=== PATIENT | female | born 1955 | race Two or more races ===

== ENCOUNTER 2020-01-10 20:43 | Inpatient (IN) | payer MEDICARE, OTHER ==
[~2020-01-10] VITALS: Ht 165.1 cm; Wt 51.7 kg
--- NOTE | 2020-01-10 21:00 | NUR ---
PT HIMA SANDOVAL FROM [facility] FOR ADMISSION TO GPS. PT TO BE EVALUATED.
--- NOTE | 2020-01-10 21:04 | NUR ---
GPS BED ASSIGNMENT 219-A
[2020-01-10 21:11] LABS: BASOPHILS % (AUTO) 0.7 % (0.0-2.0); EOSINOPHILS % (AUTO) 0.8 % (0.0-6.0); HEMATOCRIT 36 % (33-45); HEMOGLOBIN 12.3 g/dL (11.5-14.8); LYMPHOCYTES # (AUTO) 2.2 /CMM (0.8-4.8); LYMPHOCYTES % (AUTO) 34.6 % (20.0-44.0); MEAN CORPUSCULAR HGB CONC 34 g/dl (31.0-36.0); MEAN CORPUSCULAR VOLUME 93 fL (82-100); MONOCYTES # (AUTO) 0.6 /CMM (0.1-1.30); MONOCYTES % (AUTO) 8.6 % (2.0-12.0); NEUTROPHILS # (AUTO) 3.6 /CMM (1.8-8.9); NEUTROPHILS % (AUTO) 55.3 % (43.0-81.0); PLATELET COUNT (AUTO) 298 /CMM (150-450); WHITE BLOOD COUNT (AUTO) 6.4 K/uL (4.3-11.0)
--- NOTE | 2020-01-10 21:46 | NUR ---
CALLING REPORT TO GSP RN.
[2020-01-10 21:47] LABS: CALCIUM, SERUM 9.4 mg/dL (8.5-10.1); CARBON DIOXIDE 32 mmol/L (21-32); CHLORIDE 102 mmol/L (98-107); CREATININE 1.1 mg/dL (0.6-1.3); GLUCOSE 112 mg/dL (74-106); POTASSIUM 3.9 mmol/L (3.5-5.1); SODIUM SERUM 141 mmol/L (136-145); UREA NITROGEN, BLOOD 22 mg/dL (7-18)
[2020-01-10 21:59] LABS: ALANINE AMINOTRANSFERASE 14 U/L (12-78); ALBUMIN 3.6 g/dL (3.4-5.0); ALCOHOL, BLOOD < 3 mg/dL (0-0); ALKALINE PHOSPHATASE 79 U/L (46-116); ASPARTATE AMINOTRANSFERASE 16 U/L (15-37); BILIRUBIN,DIRECT 0.1 mg/dL (0.0-0.2); BILIRUBIN,TOTAL 0.2 mg/dL (0.2-1.0); TOTAL PROTEIN, SERUM 6.9 g/dL (6.4-8.2)
[2020-01-10 22:00] LABS: ACETAMINOPHEN < 2 ug/ml (10-30); SALICYLATE 1.5 mg/dL (2.8-20.0)
--- NOTE | 2020-01-10 22:16 | NUR ---
CALLED ART, RECORDS AND TAPE RECORDINGS ENGINEER FOR EVAL. LEFT MESSAGE, WILL FOLLOW UP
--- NOTE | 2020-01-10 22:18 | NUR ---
ART, OFFICE ASST EN ROUTE TO [facility] ER FOR EVAL
--- NOTE | 2020-01-10 22:30 | NUR ---
JULIET, ADRIEL, IS AT THE BEDSIDE.
--- NOTE | 2020-01-10 22:55 | NUR ---
URINE SAMPLE OBTAINED AND SENT TO LAB.
--- NOTE | 2020-01-10 23:01 | NUR ---
PT WAS EVALUATED AND IS NOT BEING PUT ON A HOLD. PT IS GOING VOLUNTARY TO [facility].
[2020-01-10] MEDS ORDERED: HYDROCODONE/APAP 5/325MG 1 EACH TABLET ONE (23:09)
[2020-01-10] MEDS ORDERED: MORPHINE SULFATE INJ 2 MG/ML DISP.SYRIN ONE (23:12)
[2020-01-10] MEDS ORDERED: MORPHINE SULFATE INJ 4 MG/ML DISP.SYRIN ONE (23:12)
[2020-01-10 23:13] LABS: APPEARANCE,URINE Clear (CLEAR); BILIRUBIN,URINE Negative (NEGATIVE); BLOOD, URINE Negative Ery/uL (NEGATIVE); COLOR,URINE Yellow (YELLOW); KETONES,URINE Trace (NEGATIVE); LEUKOCYTE ESTERASE ,URINE Negative (NEGATIVE); NITRITE, URINE Negative (NEGATIVE); PROTEIN,URINE Negative (NEGATIVE); UGLUCOSE Negative (NEGATIVE); UROBILINOGEN,URINE 0.2 EU/dL (0.2)
--- NOTE | 2020-01-10 23:18 | NUR ---
PT C/O SUPRAPUBIC ABD PAIN. DR LYN NOTIFIED. VERBAL ORDER FOR 6MG MORPHINE IM GIVEN.
[2020-01-10] MEDS ORDERED: NITR100C6 PO (23:21)
[2020-01-10] MEDS ORDERED: LEVO50TA8 PO (23:21)
[2020-01-10] MEDS ORDERED: FLUV100T3 PO (23:21)
[2020-01-10] MEDS ORDERED: TRAZ-182 PO (23:21)
[2020-01-10] MEDS ORDERED: GABA-532 PO (23:21)
[2020-01-10] MEDS ORDERED: CLON0.5T4 PO (23:21)
[2020-01-10] MEDS ORDERED: DESV25TA PO (23:21)
[2020-01-10 23:23] VITALS: BP 140/67
--- NOTE | 2020-01-10 23:23 | NUR ---
GPS diesel plant operator notes Admitted 64 YO female from ER. Pt admitted on voluntary status for psychosis, severe depression and anxiety and unable to perform many activities at home. Upon face to face assessment, Pt is alert and oriented X3, feeling depressed, flat effect, and cooperative with care. Pt denies HI/SI at this time. No acute distress noted. Skin body assessment is done and pictures is taken and placed in Pt's chart. Pt also have old heal SX scars at right knee and left arm. Pt rights handbook discussed to the patient. Pt belongings were inventoried and checked for contraband. Pt is under care psychiatric care of Dr. Saleem and under medical care of Dr. Elaine. Pt educated to the use of call andrade, bed alarm on, enviromental safety check done. Bed at low position and locked. Will continue to monitor Q 15 mins check for safety and behavior.
--- NOTE | 2020-01-10 23:29 | NUR ---
GPS RN NOTE SHEYLA FROM ER CALLED TO CONFIRM THAT PATIENT IS BEING ADMITTED VOLUNTARY ADMISSION & WAS NOT PUT ON HOLD IN ER. INFORMED TO CHARGE NURSE & PRIMARY RN.
[2020-01-10] MEDS ORDERED: MORPHINE SULFATE INJ 4 MG/ML DISP.SYRIN IM ONE (23:30)
[2020-01-10] MEDS ORDERED: HYDROCODONE/APAP 5/325MG 1 EACH TABLET PO ONE (23:30)
[2020-01-11] MEDS ORDERED: ACETAMINOPHEN 325 MG TABLET PO PRN
[2020-01-11] MEDS ORDERED: BLOOD SUGAR DIAGNOSTIC 1 EACH STRIP IN ONE
[2020-01-11] MEDS ORDERED: TEMAZEPAM 7.5 MG CAPSULE PO PRN
[2020-01-11] MEDS ORDERED: MAG HYDROX/AL HYDROX/SIMETH 30 ML UDC PO PRN
--- NOTE | 2020-01-11 00:28 | NUR ---
GPS RN notes Pt is complaining of heartburn and requesting meds. Administered maalox susp 30 ml/po as ordered for heartburn. Will continue to monitor.
[2020-01-11] MEDS ORDERED: GABAPENTIN 100 MG CAPSULE PO PRN (02:00)
[2020-01-11 05:08] LABS: BACTERIA,URINE Few /HPF (None Seen); CALCIUM OXALATE CRYSTALS,UR Many /HPF (None Seen); RBC,URINE 0-2 /HPF (0-2); SQUAMOUS EPITHELIAL CELL,UR Few /HPF (None Seen)
[2020-01-11 08:00] VITALS: BP 108/65
[2020-01-11] MEDS: MAGNESIUM HYDROXIDE 30 ML UDC PO PRN (08:11)
[2020-01-11] MEDS: LORAZEPAM 0.5 MG TABLET PO PRN ×2 (08:15→14:16)
[2020-01-11 08:16] LABS: CREATININE 0.8 mg/dL (0.6-1.3)
[2020-01-11] MEDS ORDERED: LEVOTHYROXINE SODIUM 50 MCG TABLET PO SCH (09:00)
--- NOTE | 2020-01-11 13:04 | NUR ---
FAMILY CONTACT: SW contacted pts sister Brittanie [phone] to confirm pt is able to return to her home [address] [place] [address] once stable for discharge. Sister stated that pt is currently living in her home temporarily until she finds a permanent place to live. Sister stated that in order for pt to return to her home, her and her need to be involved in pts treatment planning. SW informed her that pt has not given consent to speak to her or her regarding her treatment and informed her that pt has asked SW to not discuss her medications or her treatment with sister. SW stated that she will discuss this with pts MD and attempt to get consent. Sister agreed.
--- NOTE | 2020-01-11 14:02 | NUR ---
INITIAL DISCHARGE PLAN: Patient wishes to return to her sister Jacki's house [address] [place] [id number]. Per pts sister Jacki [phone] pt is able to return back to her home if pt agrees for her to be involved with her treatment while in the hospital. SW will help form a safe and proper discharge in collaboration with .
[2020-01-11 16:00] VITALS: BP 120/79
--- NOTE | 2020-01-11 16:02 | NUR ---
GROUP NOTE: SW encouraged pt to attend group on this present day discussing "unstable mood." S: "I feel really anxious still I can't stop thinking about where I will live and my sister is putting so much pressure on me. I think I need another Ativan to calm me down, look how my hands are shaking and I'm starting to mumble." O: Pt appeared with anxious mood and teary eyes. Pt maintained minimal eye contact and was fidgeting with her hands. A: Pt has gained minimal awareness of her current unstable mood pt states that her medication is not working and that as soon as it does she will feel better. Pt does not believe that she needs to attend groups to feel better. P: SW will continue assessing pts level of suicidality once daily. Today pt states she cannot help to think about it due to her OCD and level of anxiety.
[2020-01-11 19:39] VITALS: BP 118/71
[2020-01-11] MEDS: FLUVOXAMINE MALEATE 50 MG TABLET PO SCH (20:56)
[2020-01-11] MEDS: clonazePAM 0.5 MG TABLET PO PRN (20:56)
--- NOTE | 2020-01-11 20:56 | NUR ---
ink maker notes Klonopin po given as ordered for pt requested. educate for possible side effect. snacks also served. kept her warm and comfortable at all times. place call light at reach.
[2020-01-11] MEDS: risperiDONE 1 MG TABLET PO SCH (22:07)
[2020-01-11] MEDS: TRAZODONE 50 MG TABLET PO SCH (22:09)
--- NOTE | 2020-01-12 | NUR ---
strategy planning consultant notes pt sleeping comfortably in bed without any distress noted. kept her warm and comfortable at all times. place call light at reach.
[2020-01-12] MEDS: LEVOTHYROXINE SODIUM 50 MCG TABLET PO SCH (07:05)
[2020-01-12 08:00] VITALS: BP 101/54
[2020-01-12] MEDS: clonazePAM 0.5 MG TABLET PO PRN ×2 (08:05→18:02)
[2020-01-12] MEDS: FLUVOXAMINE MALEATE 50 MG TABLET PO SCH ×2 (09:02→22:02)
[2020-01-12] MEDS: VENLAFAXINE XR 150 MG CAP.SR.24H PO SCH (09:02)
--- NOTE | 2020-01-12 13:25 | NUR ---
FAMILY CONTACT: SW received a call from pts sister Brittanie [phone] requesting an update. SW informed her that pt has not given permission to speak to her regarding her treatment plan. Brittanie stated that if pt does not allow her to be part of her treatment plan then she cannot return to her house.
[2020-01-12] MEDS: LORAZEPAM 0.5 MG TABLET PO PRN (15:16)
--- NOTE | 2020-01-12 15:25 | NUR ---
Group note: Pt attended a group session on 01/12/20 at 2PM discussing suicidal ideation and urges. S: I have been feeling extremely depressed and have been having suicidal ideation because I feel alone and I feel like I am in an unfamiliar territory. I feel uncomfortable with where I am in my life and I have been feeling very negative because of the different experiences I have had recently. O: Pt was present during the group session and was cooperative. Pt appeared to be in a dysphoric mood and presented with an anxious affect. Pt was attentive and provided feedback to all of the other patients who attended. Pt was able to appropriately maintain eye contact and tone of voice throughout the assessment. Pt was observed to be trembling. A: Pt expressed that she cannot be alone and the SW challenged her to express why being along is uncomfortable for her. Pt stated that meant that had to listen to the thoughts that were in her head and that she was not able to distract herself. Pt expressed that she needs distractions so that she does not think about everything that is taking place in her life that cause her to feel anxious. P: Pt will continue milieu treatment and medication stabilization.
[2020-01-12 16:00] VITALS: BP 135/82
[2020-01-12] MEDS: MAGNESIUM HYDROXIDE 30 ML UDC PO PRN (18:02)
[2020-01-12 20:00] VITALS: BP 115/52
[2020-01-12] MEDS: TRAZODONE 50 MG TABLET PO SCH (22:03)
[2020-01-12] MEDS: risperiDONE 1 MG TABLET PO SCH (22:04)
[2020-01-13 08:00] VITALS: BP 107/66
[2020-01-13] MEDS: FLUVOXAMINE MALEATE 50 MG TABLET PO SCH ×2 (08:08→21:30)
[2020-01-13] MEDS: VENLAFAXINE XR 150 MG CAP.SR.24H PO SCH (08:08)
[2020-01-13] MEDS: LEVOTHYROXINE SODIUM 50 MCG TABLET PO SCH (08:09)
[2020-01-13] MEDS ORDERED: risperiDONE 0.25 MG TABLET PO SCH (09:00)
[2020-01-13] MEDS: clonazePAM 0.5 MG TABLET PO PRN (12:47)
--- NOTE | 2020-01-13 13:14 | NUR ---
INDIVIDUAL MEETING: SW met with pt on this present day to discuss her sister's involvement in her treatment. Pt states that she gives authorization for SW to speak to pts sister regarding her treatment.
--- NOTE | 2020-01-13 13:39 | NUR ---
FAMILY CONTACT: BRISEIDA contacted pts sister Brittanie [phone] to inform her pt has given SW consent to speak to her. Sister stated that pt can only return to her home if she is actively working on a plan to find a permanent place to live and can use her home as a transitional place but she states that she cannot return if she is not in agreement to finding a place and if she is refusing assistance with placement and is making no effort. She states that pt is extremely manipulative and acts like a 89 year old woman and says that she cannot get out of bed and cannot do anything for herself so that people can be by her side 23/06. Sister stated that pt continues to state that she cannot live alone and does not want to do anything to help herself with her mental illness. Sister states that pt stays in bed all day and does not eat and is making herself sick. She also mentioned that pt has a history of drug use and multiple suicide attempts and believes she has done this for attention. Sister mentioned that she cannot be pts director medical safety and if pt is not showing improvement then pt is not welcome back into her home. SW informed her that she will discuss pts discharge plan with pt individually and inform MD of pts current discharge plan.
[2020-01-13] MEDS: MAGNESIUM HYDROXIDE 30 ML UDC PO PRN (15:07)
--- NOTE | 2020-01-13 15:13 | NUR ---
GROUP NOTE: SW encouraged pt to attend group on this present day discussing "discharge planning." Pt refused stating she couldn't get up and was not feeling well. SW provided intervention and informed her that SW had a conversation with her sister and stated that her sister has mentioned that if pt does not have a plan for placement she will not be able to return to her home. SW stated that sister wants pt to have a plan in place before transitioning back to her home. Pt began crying stating that "I can't find a place to live there is nothing I can do no one will help me I just cant do this anymore. This is all her fault if she wouldn't of kicked me out of her house the first time then this would not be happening." SW provided pt with insight into her mental illness and explained that she cannot blame or expect her sister to continue caring for her as her sister has stated that she cannot continue helping her if she does not want to help herself. Pt stated that her medication was not working and SW explained that part of her treatment was to also attend groups and see her outside mental health provider so that she can begin feeling better. SW also encouraged self-regulation of mood and encouraged acceptance into her illness and engagement in recovery. BRISEIDA provided pt with referrals for placement and pt resisted stating "I rather go to a [facility]."
--- NOTE | 2020-01-13 15:24 | NUR ---
FAMILY CONTACT: SW contacted pts sister Brittanie [phone] to inform her SW had a conversation with pt regarding her placement. SW informed her that pt did not receive the information well. Sister stated that she is not surprised as every time she has attempted to have this conversation with pt she cries and uses that mechanism to avoid the conversation. Sister stated that if pt continues to resist placement then she will not allow for her to return to her house once stable for discharge. Sister stated she will be coming on this present day to have this conversation with pt once again and figure out what the best discharge plan for pt will be.
[2020-01-13 16:00] VITALS: BP 120/50
[2020-01-13 20:31] VITALS: BP 101/45
[2020-01-13] MEDS: TRAZODONE 50 MG TABLET PO SCH (21:30)
[2020-01-13] MEDS: risperiDONE 1 MG TABLET PO SCH (21:31)
[2020-01-14] MEDS: clonazePAM 0.5 MG TABLET PO PRN ×2 (07:09→20:36)
[2020-01-14 08:00] VITALS: BP 113/59
[2020-01-14] MEDS: VENLAFAXINE XR 150 MG CAP.SR.24H PO SCH (08:23)
[2020-01-14] MEDS: FLUVOXAMINE MALEATE 50 MG TABLET PO SCH ×2 (08:23→20:36)
[2020-01-14] MEDS: LEVOTHYROXINE SODIUM 50 MCG TABLET PO SCH (08:23)
[2020-01-14] MEDS: VENLAFAXINE XR 75 MG CAP.SR.24H PO SCH (12:38)
[2020-01-14] MEDS: LORAZEPAM 0.5 MG TABLET PO PRN (13:19)
[2020-01-14 16:00] VITALS: BP 114/78
[2020-01-14 20:00] VITALS: BP 104/59
[2020-01-14 20:10] VITALS: BP 104/59
[2020-01-14] MEDS: risperiDONE 1 MG TABLET PO SCH (21:15)
[2020-01-14] MEDS: TRAZODONE 50 MG TABLET PO SCH (21:16)
--- NOTE | 2020-01-14 22:00 | NUR ---
Depressed, cooperative, medication compliant, requested Klonopin, organized, freely expressing thoughts with room mate.Denies suicidal ideation, WILL CONTINUE TO MONITOR Q15 MIN WITH HELP OF STAFF TO MAINTAIN SAFETY
--- NOTE | 2020-01-15 06:07 | NUR ---
ASLEEP MOST OF THE SHIFT, GIVEN ALL PM MEDS AND KLONOPIN
[2020-01-15 08:00] VITALS: BP 102/70
[2020-01-15] MEDS: FLUVOXAMINE MALEATE 50 MG TABLET PO SCH ×2 (08:31→21:06)
[2020-01-15] MEDS: LEVOTHYROXINE SODIUM 50 MCG TABLET PO SCH (08:31)
[2020-01-15] MEDS: VENLAFAXINE XR 150 MG CAP.SR.24H PO SCH (08:31)
[2020-01-15] MEDS: VENLAFAXINE XR 75 MG CAP.SR.24H PO SCH (13:04)
[2020-01-15] MEDS: MAGNESIUM HYDROXIDE 30 ML UDC PO PRN (13:05)
--- NOTE | 2020-01-15 13:10 | NUR ---
given mom for constipation.
[2020-01-15 16:05] VITALS: BP 113/50
[2020-01-15] MEDS: clonazePAM 0.5 MG TABLET PO PRN (17:11)
--- NOTE | 2020-01-15 17:15 | NUR ---
GIVEN KLONOPIN FOR NERVOUSNESS.
--- NOTE | 2020-01-15 18:00 | NUR ---
seems depressed,but quiet.and not too verbal.
--- NOTE | 2020-01-15 19:30 | NUR ---
GPS RN NOTE, RECEIVED PATIENT AWAKE AND IN BED, NO S/S OR COMPLAINTS OF PAIN AT THIS TIME. PATIENT IS DISPLAYING NO S/S OF APPARENT DISTRESS AT THIS TIME. PATIENT BREATHING IS UNLABORED WITH EQUAL RISE AND FALL OF THE CHEST. PATIENT IS ALERT AND ORIENTED X 2-3 ON ROOM AIR WITH A SPO2 97%. PATIENT IS COMPLIANT WITH MEDICATIONS, DEPRESSED, ANXIOUS AT TIMES, AND COOPERATIVE. PATIENT DENIES SUICIDAL AND HOMICIDAL IDEATIONS AT THIS TIME. PATIENT ASSISTED WITH TURNING AND REPOSITIONING Q2HR AND PRN FOR COMFORT AND CIRCULATION. PATIENT HAS NO NEEDS AT THIS TIME. PATIENT EDUCATED ON THE USE OF THE CALL IGLESIAS. PATIENT BED SIDE RAILS UP X 2 FOR SAFETY. PATIENT BED IS LOCKED, LOW, WITH BED ALARM ON. WILL CONTINUE TO MONITOR THIS PATIENT Q15 MINUTES WITH THE HELP OF STAFF TO MAINTAIN SAFETY.
[2020-01-15 20:08] VITALS: BP 126/83
[2020-01-15] MEDS: TRAZODONE 50 MG TABLET PO SCH (21:06)
[2020-01-15] MEDS: risperiDONE 1 MG TABLET PO SCH (21:06)
[2020-01-16 08:00] VITALS: BP 112/59
[2020-01-16] MEDS: LEVOTHYROXINE SODIUM 50 MCG TABLET PO SCH (08:13)
[2020-01-16] MEDS: VENLAFAXINE XR 150 MG CAP.SR.24H PO SCH (08:13)
[2020-01-16] MEDS: FLUVOXAMINE MALEATE 50 MG TABLET PO SCH ×2 (08:14→20:35)
[2020-01-16] MEDS: VENLAFAXINE XR 75 MG CAP.SR.24H PO SCH (12:09)
[2020-01-16] MEDS: clonazePAM 0.5 MG TABLET PO PRN ×2 (12:12→20:35)
--- NOTE | 2020-01-16 12:14 | NUR ---
GPS RN NOTE: PATIENT FEELING ANXIOUS REQUESTING MEDICATIONS KLONOPIN 0.5 MG PO PRN GIVEN PER ORDER WILL CONTINUE MONITORING
[2020-01-16 16:00] VITALS: BP 121/59
[2020-01-16 20:15] VITALS: BP 127/62
[2020-01-16] MEDS: TRAZODONE 50 MG TABLET PO SCH (21:51)
[2020-01-16] MEDS ORDERED: risperiDONE 1 MG TABLET PO SCH (22:00)
--- NOTE | 2020-01-17 05:38 | NUR ---
GPS RN NOTE: PT REFUSED SKIN CHECK. PER PT AM SHIFT ALREADY DID SKIN CHECK ON HER. PT A/O X3, CALM AND COOPERATIVE. WILL CONTINUE TO MONITOR AND ENDORSE TO AM NURSE.
[2020-01-17] MEDS: LEVOTHYROXINE SODIUM 50 MCG TABLET PO SCH (07:51)
[2020-01-17 08:00] VITALS: BP 97/69
[2020-01-17] MEDS: clonazePAM 0.5 MG TABLET PO PRN (08:54)
[2020-01-17] MEDS: VENLAFAXINE XR 150 MG CAP.SR.24H PO SCH (08:54)
[2020-01-17] MEDS: FLUVOXAMINE MALEATE 50 MG TABLET PO SCH (08:54)
--- NOTE | 2020-01-17 09:54 | NUR ---
DISCHARGE NOTE: Pt will be discharged at 12:00pm via private vehicle to her sister Jacki's house [address] [place] [address]. Sister Jacki [phone] will be picking pt up and transporting home. Pts mood is anxious with congruent affect. Pt denied suicidal/homicidal ideation and denied visual/auditory hallucinations. Pt will be under the care of Psychiatrist: [facility]. Fof[facility] [address] [place] [address] P: [phone] and has a follow up appointment to address her substance use and medication management on Tuesday January 21, 2020 at 2:00pm. SW faxed clinicals to pts mental health nurse Maliha Brunner RN. Pt was also given a referral to [facility] Address: [address] [place] [address] . The multidisciplinary exitcare form was done, printed, signed, and given to the patient.
--- NOTE | 2020-01-17 10:15 | NUR ---
GPS NURSING NOTE RECEIVED PATIENT IN THE ROOM AWAKE AMBULATORY STEADY GAIT. ANXIOUS, WRINGING HER HANDS, PLAN FOR D/C TODAY. ALERT/ORIENTED X3,DENIES SI/HI COMPLIANT WITH AM MEDICATIONS COOPERATIVE, CALM, SAFETY CHECKS DONE. FALL PRECAUTIONS CONTINUED. BED ALARM ON. BED IN LOW LOCKED POSITION. WILL CONTINUE TO MONITOR Q15 FOR SAFETY AND BEHAVIOR
--- NOTE | 2020-01-17 11:53 | NUR ---
MARBLE INSTALLER NOTE PATIENT IS A 64 FEMALE DISCHARGED TO HOME. PATIENT IS IN STABLE CONDITION. VSS. NO ACUTE DISTRESS NOTED. NO COMPLAINTS. COMPLIANT WITH MEDICATION MANAGEMENT. COOPERATIVE WITH PLAN OF CARE. PSYCHIATRIC TREATMENT PLANS MET. MEDICAL TREATMENT PLANS DEFERRED FOR CONTINUAL MONITORING. DENIES SI/HI VAH AT THE TIME OF DISCHARGE. PATIENT REFUSED SKIN CHECK UPON DISCHARGE. EDUCATED PATIENT ABOUT AFTERCARE WITH COPY PROVIDED. RETURNED PERSONAL BELONGINGS TO PATIENT. MEDICATIONS RECONCILED WITH ALONG WITH PSYCHIATRIC DISCHARGE ORDERS WITH DR OWENS AND PLACIDO SKAGGS PIT CLERK. DISCHARGE PAPERWORK SIGNED. FOR FOLLOW UP WITH PSYCHIATRIST AND PHYSICAL THERAPY RESIDENT WITHIN 1 WEEK. PATIENT LEFT THE [facility] GPS VIA PRIVATE CAR ACCOMPANIED BY SISTER, ROSELINE.
== END 2020-01-17 11:50 | disposition home or self-care (01) | DRG 885 ==
LOC: ER 20:44 → GPS 23:07
PROVIDERS: ADMIT Psychiatry & Neurology Psychosomatic Medicine; ATTEND Nurse Practitioner Acute Care
DX: F33.2 Major depressive disorder, recurrent severe without psychotic features (principal); F41.9 Anxiety disorder, unspecified; E03.9 Hypothyroidism, unspecified; F90.9 Attention-deficit hyperactivity disorder, unspecified type; K58.9 Irritable bowel syndrome, unspecified; Z90.710 Acquired absence of both cervix and uterus; Z91.5 Personal history of self-harm; Z90.49 Acquired absence of other specified parts of digestive tract; F42.9 Obsessive-compulsive disorder, unspecified; F19.90 Other psychoactive substance use, unspecified, uncomplicated
CPT/HCPCS: 36415; 80048-TC; 80061-TC; 80076-TC; 80305; 81000-TC; 82565-TC; 82962-TC; 85025-TC; 87081-TC; 87086-TC; 97116-TC; 97530-TC; G0480; J2270

== ENCOUNTER 2020-04-07 22:43 | Inpatient (IN) | payer MEDICARE, OTHER ==
[~2020-04-07] VITALS: Ht 167.6 cm; Wt 49.0 kg
[~2020-04-07 22:43] MED LIST: GABA-532 PO; LEVO50TA8 PO; NITR100C6 PO
[2020-04-08 00:15] VITALS: BP 130/64
--- NOTE | 2020-04-08 00:15 | NUR ---
GPS ADMISSION NOTE, RECEIVED PATIENT FROM [facility]. PATIENT ARRIVED ON THIS UNIT AT 0015 VIA STRETCHER WITH 2 EMT ESCORTS. PATIENT ADMITTED VOLUNTARY. PATIENT IS ALERT AND ORIENTED X 4 REPORTED HAVING SUICIDAL IDEATION DUE TO HER NOT HAVING ACCESS TO HER PSYCH MEDICATIONS. PATIENT CALLED 911 REPORTING ANXIETY AND PANIC ATTACK AND FEELING SUICIDAL. UPON FACE TO FACE ASSESSMENT PATIENT IS NOTED TO BEING CALM, COOPERATIVE, DISHEVELED, DEMANDING, AND NEEDS REDIRECTION. PATIENT IS CURRENTLY SITTING IN CHAIR AWAKE, HAS A COMPLAINT OF 10 OUT 10 PAIN IN NECK AND LOWER BACK. PATIENT IS TAKING IM PAIN MEDICATION FOR THIS PAIN. PATIENT IS DISPLAYING NO S/S OF APPARENT DISTRESS. PATIENT BREATHING IS UNLABORED WITH EQUAL RISE AND FALL OF THE CHEST. PATIENT IS ALERT AND ORIENTATED X 4 ON ROOM AIR. PATIENT ASSISTED WITH TURING AND REPOSITIONING Q2HR AND PRN FOR COMFORT AND CIRCULATION. PATIENT HAS NO NEEDS AT THIS TIME. PATIENT DENIES SUICIDE IDEATIONS AND HOMICIDAL IDEATIONS AT THIS TIME. PATIENT SIGNED ALL PAPER WORK. PATIENT RIGHTS BOOKLET GIVEN. PATIENT IS UNDER THE PSYCHIATRIC CARE OF DR. OWENS AND THE MEDICAL CARE OF DR CLIFFORD. PATIENT BELONGINGS WERE INVENTORIED AND CHECKED FOR CONTRABAND. ALL CONTRABAND REMOVED AND STORED IN PATIENT HALLWAY LOCKER. PATIENT ADVANCED DIRECTIVES PREFERENCE, IMMUNIZATIONS QUESTIONER, NECESSARY PAPERWORK COMPLETED. PATIENT SKIN ASSESSMENT COMPLETED. PATIENT ORIENTATED TO ROOM, FLOOR, AND STAFF WITH ALL QUESTIONS ANSWERED. PATIENT EDUCATED ON THE USE OF THE CALL IGLESIAS. I WILL CONTINUE TO MONITOR THIS PATIENT Q 15 MIN WITH THE HELP OF STAFF TO MAINTAIN SAFETY.
[2020-04-08] MEDS ORDERED: NITR100C15 PO (00:35)
[2020-04-08] MEDS ORDERED: CLON0.5T PO (00:41)
[2020-04-08] MEDS ORDERED: FLUV50TA3 PO (00:42)
[2020-04-08] MEDS ORDERED: VENL150C2 PO (00:45)
[2020-04-08] MEDS ORDERED: CHOL2400 PO (00:49)
[2020-04-08] MEDS ORDERED: MAGNESIUM HYDROXIDE 30 ML UDC PO PRN (01:00)
[2020-04-08] MEDS ORDERED: LORAZEPAM 0.5 MG TABLET PO PRN ×2 (01:00→19:00)
[2020-04-08] MEDS ORDERED: ACETAMINOPHEN 325 MG TABLET PO PRN (01:00)
[2020-04-08] MEDS ORDERED: MAG HYDROX/AL HYDROX/SIMETH 30 ML UDC PO PRN (01:00)
--- NOTE | 2020-04-08 01:24 | NUR ---
GPS RN NOTE, PATIENT HAS A COMPLAINT OF LOWER BACK PAIN AT A 10 OUT 10 ON THE PAIN SCALE. PATIENT VITAL SIGNS ARE STABLE. GAVE MORPHINE SULFATE 4 MG IM ONCE ORDERED. WILL REASSESS FOR PAIN AND I WILL CONTINUE TO MONITOR THIS PATIENT.
[2020-04-08] MEDS ORDERED: MORPHINE SULFATE INJ 4 MG/ML DISP.SYRIN IM ONE (01:30)
[2020-04-08] MEDS ORDERED: HYDROCODONE/APAP 5/325MG TABLET PO PRN (01:30)
[2020-04-08 08:00] VITALS: BP 106/67
[2020-04-08] MEDS: CHOLECALCIFEROL 1,000 UNIT TABLET (VIT D3) PO SCH (12:17)
[2020-04-08] MEDS: LEVOTHYROXINE SODIUM 25 MCG TABLET PO SCH (12:17)
[2020-04-08] MEDS: POLYETHYLENE GLYCOL 3350 17 GM POWD.PACK PO SCH ×2 (13:28→21:28)
[2020-04-08] MEDS: LORAZEPAM 0.5 MG TABLET PO PRN (14:01)
--- NOTE | 2020-04-08 14:03 | NUR ---
gps rn note: patient c/o anxiety. requested Ativan PRN. Administered as ordered. Will continue to monitor
[2020-04-08 16:00] VITALS: BP 129/76
[2020-04-08] MEDS: GABAPENTIN 100 MG CAPSULE PO SCH (16:11)
[2020-04-08 20:00] VITALS: BP 108/45
[2020-04-08] MEDS: FLUVOXAMINE MALEATE 50 MG TABLET PO SCH (21:28)
[2020-04-09 07:19] LABS: BASOPHILS # (AUTO) 0.1 /CMM (0.0-0.2); BASOPHILS % (AUTO) 0.9 % (0.0-2.0); EOSINOPHILS % (AUTO) 0.7 % (0.0-6.0); HEMATOCRIT 39 % (33-45); HEMOGLOBIN 12.9 g/dL (11.5-14.8); LYMPHOCYTES # (AUTO) 2.7 /CMM (0.8-4.8); LYMPHOCYTES % (AUTO) 44.3 % (20.0-44.0); MEAN CORPUSCULAR HGB CONC 33 g/dl (31.0-36.0); MEAN CORPUSCULAR VOLUME 94 fL (82-100); MONOCYTES # (AUTO) 0.4 /CMM (0.1-1.30); MONOCYTES % (AUTO) 6.1 % (2.0-12.0); NEUTROPHILS # (AUTO) 2.9 /CMM (1.8-8.9); PLATELET COUNT (AUTO) 318 /CMM (150-450); RED BLOOD CELL COUNT(AUTO) 4.15 MIL/uL (4.0-5.2)
[2020-04-09 07:44] LABS: ALBUMIN 3.4 g/dL (3.4-5.0); BILIRUBIN,TOTAL 0.3 mg/dL (0.2-1.0); CALCIUM, SERUM 9.3 mg/dL (8.5-10.1); CREATININE 0.9 mg/dL (0.6-1.3); POTASSIUM 5.2 mmol/L (3.5-5.1); TOTAL PROTEIN, SERUM 6.8 g/dL (6.4-8.2)
[2020-04-09 08:00] VITALS: BP 139/82
[2020-04-09] MEDS: LEVOTHYROXINE SODIUM 25 MCG TABLET PO SCH (08:08)
[2020-04-09] MEDS: GABAPENTIN 100 MG CAPSULE PO SCH ×3 (09:01→16:18)
[2020-04-09] MEDS: LORAZEPAM 0.5 MG TABLET PO PRN ×2 (10:52→17:36)
--- NOTE | 2020-04-09 11:07 | NUR ---
RN-CO: ATIVAN 1 MG PO GIVEN. PT IS VERY ANXIOUS AND TREMBLING AND SCARED TO BE DISCHARGE IN THE STREET.
--- NOTE | 2020-04-09 11:39 | NUR ---
RN-CO: DR MARSH MADE AWARE OF K LEVEL 5.2 WITH NO NEW ORDER AT THIS TIME. [facility]
[2020-04-09 16:00] VITALS: BP 129/64
--- NOTE | 2020-04-09 17:37 | NUR ---
RN-CO: ATIVAN 1 MG PO GIVEN FOR SEVERE ANXIETY , PATIENT IS TREMBLING AND CRYING.
[2020-04-09 20:40] VITALS: BP 119/58
[2020-04-09] MEDS: FLUVOXAMINE MALEATE 50 MG TABLET PO SCH (21:27)
[2020-04-09] MEDS: POLYETHYLENE GLYCOL 3350 17 GM POWD.PACK PO SCH (21:30)
--- NOTE | 2020-04-09 21:30 | NUR ---
GPS RN NOTE: MEDICATION REFUSAL PT. REFUSED MIRALAX 17GM PO. PT. STATES " I ALREADY WENT TO THE BATHROOM." WILL CONTINUE TO MONITOR FOR SAFETY AND BEHAVIOR
[2020-04-10] MEDS: LEVOTHYROXINE SODIUM 25 MCG TABLET PO SCH (07:30)
[2020-04-10 08:00] VITALS: BP 139/59
[2020-04-10] MEDS: GABAPENTIN 100 MG CAPSULE PO SCH ×3 (09:00→17:00)
[2020-04-10] MEDS: LORAZEPAM 0.5 MG TABLET PO PRN ×2 (09:16→21:30)
--- NOTE | 2020-04-10 09:16 | NUR ---
RN NOTE:PATIENT C/O ANXIETY MEDICATED WITH ATIVAN 1 MG PO FOR ANXIETY.WILL CONTINUE TO MONITOR .
[2020-04-10] MEDS: ARIPIPRAZOLE 2 MG TABLET PO SCH ×2 (10:35→17:00)
[2020-04-10 10:46] LABS: CALCIUM, SERUM 8.8 mg/dL (8.5-10.1); POTASSIUM 3.9 mmol/L (3.5-5.1)
--- NOTE | 2020-04-10 11:01 | NUR ---
Family Contact: SW called the pts sister, Brittanie ([phone]), who stated that the pt was living with her until she found placement but since then she has been going from one hospital to the next after making attempts to take her own life. Per pts sister, the pt becomes anxious about her living situation and constantly believes that she will be placed in a long term. SW expressed to the pts sister that the SW discussed a nursing facility as an option based on the MDs recommendation and that the pt agreed to the placement. Pts sister stated that she would like to be informed about her placement.
--- NOTE | 2020-04-10 12:10 | NUR ---
Initial Discharge Plan: Pt currently resides in her sister's home with her family located at [address] [place] [address]; ([phone]). Per pt, she cannot return to her sister's home because that was supposed to be temporary and the sister and her family would like the pt to have alternative placement. BRISEIDA discussed SNF placement with the pt per MD recommendation and the pt agreed. BRISEIDA will work with the pt and the MD regarding appropriate discharge planning. SW will form a safe and proper discharge plan.
[2020-04-10] MEDS: CHOLECALCIFEROL 1,000 UNIT TABLET (VIT D3) PO SCH (12:59)
[2020-04-10 16:00] VITALS: BP 96/59
[2020-04-10 20:09] VITALS: BP 121/61
[2020-04-10] MEDS: FLUVOXAMINE MALEATE 50 MG TABLET PO SCH (21:18)
[2020-04-10] MEDS: ATORVASTATIN 10 MG TABLET PO SCH (21:18)
[2020-04-10] MEDS: POLYETHYLENE GLYCOL 3350 17 GM POWD.PACK PO SCH (21:22)
[2020-04-11 08:00] VITALS: BP 126/74
[2020-04-11 08:02] VITALS: BP 126/74
[2020-04-11] MEDS: LEVOTHYROXINE SODIUM 25 MCG TABLET PO SCH (08:10)
[2020-04-11] MEDS: ARIPIPRAZOLE 2 MG TABLET PO SCH ×2 (08:10→16:06)
[2020-04-11] MEDS: GABAPENTIN 100 MG CAPSULE PO SCH ×3 (08:10→16:06)
--- NOTE | 2020-04-11 09:19 | NUR ---
GPS RN OPENING NOTE RECEIVED PATIENT AOX3-4 AWAKE IN BED. PATIENT IS ANXIOUS, WRINGING HER HANDS. NEEDS ENCOURAGEMENT TO TAKE HER MEDICATIONS. MED COMPLIANT. PATIENT IS CONCERNED OVER DISCHARGE PLAN AND ASKED TO SPEAK TO SW. PATIENT IS FEARFUL. BREATHING IS EVEN AND UNLABORED WITH EQUAL RISE AND FALL OF CHEST. SAFETY PRECAUTIONS IN PLACE. BED IN LOCKED AND LOW POSITION WITH 2 SIDE RAILS UP FOR SAFETY. WILL CONTINUE TO MONITOR Q15 FOR MOOD, SAFETY AND BEHAVIOR
[2020-04-11] MEDS: LORAZEPAM 0.5 MG TABLET PO PRN (11:02)
--- NOTE | 2020-04-11 11:18 | NUR ---
GPS RN NOTE: ANXIETY PATIENT EXPRESSING INCREASED ANXIETY AND REQUESTED ATIVAN. PRN PO 1MG ADMINISTERED ORDERED. WILL CONTINUE TO MONITOR
--- NOTE | 2020-04-11 12:23 | NUR ---
Family Contact: SW called the pts sister, Brittanie ([phone]), and inquired about the pts apartment situation due to the pt asking about her discharge planning. Pts sister stated that they let go of the apartment yesterday and that they informed the pt that they will not be assisting her in terms of a permanent residence. SW stated that she will be discharged to a SNF and the social workers at the facility will discharge her depending on her needs from there.
--- NOTE | 2020-04-11 14:05 | NUR ---
Individual Intervention with the pt: SW met with the pt at bedside and encouraged her to participate in group therapy to discuss her discharge planning. Pt stated that she did not want to leave her room because that is where she felt comfortable. SW stated that she had spoken to her sister to confirm the situation with the apartment. SW stated that the sister informed her that they had not signed for the new apartment and that now the sister is not willing to be involved in assisting with permanent placement. SW assured her that this was not something to worry about because she does have supports. Pt began to cry and repeatedly stated, "I cannot be placed in a usp. I will not be able to live there." SW asked why she believes that the first and only option is to place the pt in a usp and she stated that she was just feeling scared. SW assured her that a homeless usp is not in the plan for her. SW stated that the MD recommended a SNF and the SW will be sending out referrals to get her accepted. SW then stated that before she is discharged from the SNF that the social workers at the facility will assist her with a track laying equipment operator placement. Pt needed the SW to repeat herself multiple times before she stated that she was starting to "feel better." Pt appears to be highly anxious regarding her discharge plan and with the uncertainty of where she will be. SW asked the pt to speak about why she attempts suicide when she feels as if she does not know where she will be and the pt stated, "I moved here from [place] to create a life here close to some family such as my sister. I do not like not knowing how my life will be. I do not want to be on the streets or in a homeless usp, that sounds awful." SW stated that she will keep her updated with her discharge plan as much as she can.
[2020-04-11 16:00] VITALS: BP 114/60
[2020-04-11 20:24] VITALS: BP 112/67
[2020-04-11] MEDS: FLUVOXAMINE MALEATE 50 MG TABLET PO SCH (21:09)
[2020-04-11] MEDS: POLYETHYLENE GLYCOL 3350 17 GM POWD.PACK PO SCH (21:09)
[2020-04-11] MEDS: ATORVASTATIN 10 MG TABLET PO SCH (21:21)
--- NOTE | 2020-04-12 06:46 | NUR ---
RN NOTES, NO SIGNIFICANTS CHANGE IN CONDITION, PATIENT COMPLAIN WITH CARE, DISRUPTIVE BEHAVIOR ISSUES EXHIBITED AT TIMES, DEMANDING, ADEQUATE HORS OF SLEEP, WILL ENDORSED CONTINUITY OF CARE TO ONCOMING NURSE
[2020-04-12 08:00] VITALS: BP 134/78
[2020-04-12] MEDS: LEVOTHYROXINE SODIUM 25 MCG TABLET PO SCH (08:29)
[2020-04-12] MEDS: GABAPENTIN 100 MG CAPSULE PO SCH ×3 (08:29→16:48)
[2020-04-12] MEDS: ARIPIPRAZOLE 2 MG TABLET PO SCH ×2 (08:30→16:48)
--- NOTE | 2020-04-12 09:58 | NUR ---
SNF Referral: SW faxed a referral to the following two facilities: [facility] with attn to Josee to the fax number: [phone] [facility] with attn to Naz to the fax number: [phone].
[2020-04-12] MEDS: CHOLECALCIFEROL 1,000 UNIT TABLET (VIT D3) PO SCH (12:23)
[2020-04-12] MEDS: LIDOCAINE 5% (PATCH) 1 EA PATCH TP SCH (13:00)
--- NOTE | 2020-04-12 14:19 | NUR ---
SNF Contact: Jillian ([phone]), design coordinator from [facility], contacted the SW and stated that the pt was accepted to their facility upon discharge.
--- NOTE | 2020-04-12 16:23 | NUR ---
Individual Counseling: This SW met with the pt. at bedside to facilitate individual counseling session. However, the pt. presented sitting on her bed talking on the phone and was tearful. Patient stated, "This is not a good time, I don't want to participate". SW respected the patient self-determination. Patient will be invited to participate in future group or individual counseling sessions.
[2020-04-12 20:17] VITALS: BP 136/71
[2020-04-12] MEDS: TEMAZEPAM 7.5 MG CAPSULE PO PRN (21:41)
[2020-04-12] MEDS: ATORVASTATIN 10 MG TABLET PO SCH (21:41)
[2020-04-12] MEDS: FLUVOXAMINE MALEATE 50 MG TABLET PO SCH (21:41)
[2020-04-12] MEDS: POLYETHYLENE GLYCOL 3350 17 GM POWD.PACK PO SCH (22:00)
--- NOTE | 2020-04-13 07:40 | NUR ---
GPS RN NOTE: OPENING RECEIVED PATIENT AOX3-4 AWAKE IN BED. PATIENT IS AMBULATORY WITH STEADY GAIT. REQUESTED ATIVAN THIS MORNING FOR ANXIETY. PATIENT IS COOPERATIVE AND MED COMPLIANT. DENIES SI/HI AND VAH. BREATHING IS EVEN AND UNLABORED WITH EQUAL RISE AND OF FALL OF CHEST. PATIENT DENIES PAIN AND IS EXHIBITING NO SIGNS OF DISTRESS. SAFETY PRECAUTIONS IN PLACE. BED IN LOCKED AND LOW POSITION WITH 2 SIDE RAILS UP FOR SAFETY. NEEDS MET. WILL CONTINUE TO MONITOR Q15 FOR MOOD, SAFETY AND BEHAVIOR.
[2020-04-13 08:00] VITALS: BP 125/75
[2020-04-13] MEDS: LEVOTHYROXINE SODIUM 25 MCG TABLET PO SCH (08:14)
[2020-04-13] MEDS: LORAZEPAM 0.5 MG TABLET PO PRN ×2 (08:14→15:08)
[2020-04-13] MEDS: ARIPIPRAZOLE 2 MG TABLET PO SCH (08:14)
[2020-04-13] MEDS: GABAPENTIN 100 MG CAPSULE PO SCH ×3 (08:14→16:30)
[2020-04-13] MEDS: LIDOCAINE 5% (PATCH) 1 EA PATCH TP SCH (13:00)
--- NOTE | 2020-04-13 15:08 | NUR ---
GPS RN NOTE: ANXIETY PATIENT APPROACHED NURSE, ANXIOUS, AND REQUESTED ATIVAN. ADMINISTERED ORDERED. WILL CONTINUE TO MONITOR
--- NOTE | 2020-04-13 15:40 | NUR ---
Individual Counseling: This SW met with the pt at bedside to facilitate individual counseling session. Pt stated that she has been working on accepting that she will be placed in a SNF. She stated that she understands that living in an apartment by herself would not be the best decision for her at this time. Pt states that she understands that she needs support and people around her so that she does not feel lonely. Pt states that she is looking forward to moving to that facility and starting her life again.
[2020-04-13 16:00] VITALS: BP 137/62
[2020-04-13 21:12] VITALS: BP 126/64
[2020-04-13] MEDS: POLYETHYLENE GLYCOL 3350 17 GM POWD.PACK PO SCH (21:23)
[2020-04-13] MEDS: FLUVOXAMINE MALEATE 50 MG TABLET PO SCH (21:24)
[2020-04-13] MEDS: ATORVASTATIN 10 MG TABLET PO SCH (21:24)
[2020-04-13] MEDS: TEMAZEPAM 7.5 MG CAPSULE PO PRN (21:24)
[2020-04-13] MEDS ORDERED: ARIPIPRAZOLE 5 MG TABLET PO ONE (22:00)
[2020-04-13] MEDS ORDERED: ARIPIPRAZOLE 2 MG TABLET PO ONE (22:30)
[2020-04-14 07:49] VITALS: BP 124/60
[2020-04-14 08:00] VITALS: BP 124/60
[2020-04-14] MEDS: GABAPENTIN 100 MG CAPSULE PO SCH ×3 (08:09→16:36)
[2020-04-14] MEDS: LEVOTHYROXINE SODIUM 25 MCG TABLET PO SCH (08:09)
[2020-04-14] MEDS: CHOLECALCIFEROL 1,000 UNIT TABLET (VIT D3) PO SCH (11:21)
[2020-04-14] MEDS: LORAZEPAM 0.5 MG TABLET PO PRN (11:21)
[2020-04-14] MEDS: LIDOCAINE 5% (PATCH) 1 EA PATCH TP SCH (12:40)
[2020-04-14 16:00] VITALS: BP 130/68
[2020-04-14 20:25] VITALS: BP 141/80
[2020-04-14] MEDS: POLYETHYLENE GLYCOL 3350 17 GM POWD.PACK PO SCH (21:36)
[2020-04-14] MEDS: ATORVASTATIN 10 MG TABLET PO SCH (21:36)
[2020-04-14] MEDS: FLUVOXAMINE MALEATE 50 MG TABLET PO SCH (21:36)
[2020-04-14] MEDS: ARIPIPRAZOLE 2 MG TABLET PO SCH (21:36)
[2020-04-14] MEDS: TEMAZEPAM 7.5 MG CAPSULE PO PRN (22:24)
[2020-04-14 23:25] LABS: APPEARANCE,URINE CLEAR (CLEAR); BILIRUBIN,URINE NEGATIVE (NEGATIVE); BLOOD, URINE TRACE-INTA Ery/uL (NEGATIVE); COLOR,URINE YELLOW (YELLOW); KETONES,URINE NEGATIVE (NEGATIVE); LEUKOCYTE ESTERASE ,URINE NEGATIVE (NEGATIVE); NITRITE, URINE NEGATIVE (NEGATIVE); PROTEIN,URINE NEGATIVE (NEGATIVE); UGLUCOSE NEGATIVE (NEGATIVE); UROBILINOGEN,URINE 0.2 EU/dL (0.2)
[2020-04-14 23:35] LABS: BACTERIA,URINE None seen /HPF (None Seen); SQUAMOUS EPITHELIAL CELL,UR Few /HPF (None Seen)
--- NOTE | 2020-04-15 07:30 | NUR ---
GPS/RN NOTE THE PATIENT IS RECEIVED IN BED. PATIENT ALERT AND ORIENTED X3. DENIES PAIN. IN ROOM AIR AND DENIES SOB. RESPIRATION REGULAR AND UNLABORED. PATIENT IN NO APPARENT DISTRESS. DENIES SI AND HI. DENIES VISUAL AND AUDITORY HALLUCINATIONS AT THIS TIME. SAFETY PRECAUTIONS IN PLACE. BED IN LOCKED AND LOW POSITION WITH 2 SIDE RAILS UP FOR SAFETY. WILL CONTINUE TO MONITOR Q15 FOR MOOD, SAFETY AND BEHAVIOR.
[2020-04-15 08:00] VITALS: BP 125/70
[2020-04-15] MEDS: LEVOTHYROXINE SODIUM 25 MCG TABLET PO SCH (08:00)
[2020-04-15] MEDS: GABAPENTIN 100 MG CAPSULE PO SCH ×3 (08:00→17:16)
[2020-04-15] MEDS: LIDOCAINE 5% (PATCH) 1 EA PATCH TP SCH (13:00)
[2020-04-15 16:00] VITALS: BP 111/65
--- NOTE | 2020-04-15 17:31 | NUR ---
GPS/RN NOTE THE PATIENT IN THE ACTIVITY ROOM AND WATCHING TV. ALERT AND ORIENTED X3. DENIES PAIN. IN ROOM AIR AND DENIES SOB. RESPIRATION REGULAR AND UNLABORED. NO MANIFESTATION OF DISTRESS NOTED. DENIES SI, HI AND ANY TYPE OF HALLUCINATION AT THIS TIME. THE PATIENT CALM, COOPERATIVE, PLEASANT AND MEDICATION COMPLIANT. SAFETY MEASURES TAKEN AT ALL TIMES. VISUAL CHECKS DONE. WILL ENDORSE TO [facility].
[2020-04-15] MEDS: LORAZEPAM 0.5 MG TABLET PO PRN (18:12)
--- NOTE | 2020-04-15 18:13 | NUR ---
GPS/RN NOTE THE PATIENT VERBALIZED FEELING ANXIOUS. ATIVAN 1 MG PO GIVEN. WILL CONTINUE TO MONITOR.
[2020-04-15 20:00] VITALS: BP 106/70
[2020-04-15] MEDS: ARIPIPRAZOLE 2 MG TABLET PO SCH (21:35)
[2020-04-15] MEDS: FLUVOXAMINE MALEATE 50 MG TABLET PO SCH (21:35)
[2020-04-15] MEDS: ATORVASTATIN 10 MG TABLET PO SCH (21:36)
[2020-04-15] MEDS: POLYETHYLENE GLYCOL 3350 17 GM POWD.PACK PO SCH (22:12)
[2020-04-15] MEDS: TEMAZEPAM 7.5 MG CAPSULE PO PRN (22:12)
[2020-04-16 08:00] VITALS: BP 137/72
[2020-04-16] MEDS: LEVOTHYROXINE SODIUM 25 MCG TABLET PO SCH (08:20)
[2020-04-16] MEDS: GABAPENTIN 100 MG CAPSULE PO SCH ×3 (09:17→16:49)
[2020-04-16] MEDS: CHOLECALCIFEROL 1,000 UNIT TABLET (VIT D3) PO SCH (12:52)
[2020-04-16] MEDS: LIDOCAINE 5% (PATCH) 1 EA PATCH TP SCH (12:53)
[2020-04-16 16:00] VITALS: BP 119/63
--- NOTE | 2020-04-16 19:40 | NUR ---
GPS RN NOTES RECEIVED PATIENT FROM MORNING SHIFT, ALERT AND ORIENTED X 3. AMBULATORY, VERBALLY RESPONSIVE AND ABLE TO FOLLOW DIRECTIONS. BREATHING REGULAR AND UNLABORED ON ROOM AIR. DENIES ANY SUICIDAL IDEATION, NO COMPLAINTS OF PAIN/DISCOMFORT REPORTED AT THIS TIME. BED LOW AND LOCKED ON SEMI FOWLERS POSITION. WILL CONTINUE TO MONITOR.
[2020-04-16 20:00] VITALS: BP 127/76
[2020-04-16] MEDS: ARIPIPRAZOLE 2 MG TABLET PO SCH (21:15)
[2020-04-16] MEDS: ATORVASTATIN 10 MG TABLET PO SCH (21:15)
[2020-04-16] MEDS: FLUVOXAMINE MALEATE 50 MG TABLET PO SCH (21:15)
[2020-04-16] MEDS: POLYETHYLENE GLYCOL 3350 17 GM POWD.PACK PO SCH ×2 (21:15→21:29)
[2020-04-16 21:21] VITALS: BP 127/76
--- NOTE | 2020-04-16 21:45 | NUR ---
GPS RN NOTES REFUSED DUE MIRALAX, RISK AND BENEFITS EXPLAINED.
[2020-04-16] MEDS: TEMAZEPAM 7.5 MG CAPSULE PO PRN (22:06)
--- NOTE | 2020-04-16 22:30 | NUR ---
GPS RN NOTES COMPLAINED OF INABILITY TO STAY ASLEEP, RESTORIL 7.5MG GIVEN BY MOUTH. NON-PHARMACOLOGICAL INTERVENTIONS PROVIDED. WILL CONTINUE TO MONITOR.
--- NOTE | 2020-04-17 06:25 | NUR ---
GPS RN NOTES PATIENT IN BED ALERT AND ORIENTED X 3. AFEBRILE WITH NO S/S OF DISTRESS OBSERVED. DENIES ANY PAIN/DISCOMFORT. BED LOW AND LOCKED ON SEMI FOWLERS POSITION. WILL ENDORSE TO MORNING SHIFT FOR LUX.
[2020-04-17 08:00] VITALS: BP 101/65
[2020-04-17] MEDS: LEVOTHYROXINE SODIUM 25 MCG TABLET PO SCH (08:08)
[2020-04-17] MEDS: GABAPENTIN 100 MG CAPSULE PO SCH ×3 (08:08→16:23)
[2020-04-17] MEDS: LIDOCAINE 5% (PATCH) 1 EA PATCH TP SCH (13:00)
--- NOTE | 2020-04-17 15:30 | NUR ---
patient reported increased anxiety and requested Ativan PRN. Ativan administrated as ordered
[2020-04-17] MEDS: LORAZEPAM 0.5 MG TABLET PO PRN (15:32)
[2020-04-17 16:00] VITALS: BP 117/70
--- NOTE | 2020-04-17 18:52 | NUR ---
Patient in her room and having nice conversation with roommate. Patient noted less anxious and more open for communication. Med compliant , denies any pain at this time. Will endorse to next shift for LUX
[2020-04-17 20:26] VITALS: BP 134/98
[2020-04-17] MEDS: ARIPIPRAZOLE 2 MG TABLET PO SCH (21:06)
[2020-04-17] MEDS: FLUVOXAMINE MALEATE 50 MG TABLET PO SCH (21:06)
[2020-04-17] MEDS: ATORVASTATIN 10 MG TABLET PO SCH (21:07)
[2020-04-17] MEDS: POLYETHYLENE GLYCOL 3350 17 GM POWD.PACK PO SCH (21:09)
--- NOTE | 2020-04-17 21:09 | NUR ---
GPS RN NOTES: REFUSED MIRALAX PT REFUSED MIRALAX. EXPLAINED RISKS AND BENEFITS. PT STILL REFUSED X3. CONTINUE TO MONITOR.
[2020-04-17] MEDS: TEMAZEPAM 7.5 MG CAPSULE PO PRN (22:04)
--- NOTE | 2020-04-17 22:05 | NUR ---
GPS RN NOTES: INSOMNIA PT UNABLE TO SLEEP. PT REQUESTED SLEEPING MEDICATION. OFFERED RESTORIL 7.5 MG PO PRN ORDERED. PT AGREED AND TOLERATED MEDICATION WELL. CONTINUE TO MONITOR.
[2020-04-18 08:00] VITALS: BP 112/56
[2020-04-18] MEDS: GABAPENTIN 100 MG CAPSULE PO SCH ×3 (08:28→16:05)
[2020-04-18] MEDS: LEVOTHYROXINE SODIUM 25 MCG TABLET PO SCH (08:28)
--- NOTE | 2020-04-18 09:02 | NUR ---
SNF Contact: BRISEIDA faxed a clearance to Jillian ([phone]), planning coordinator from [facility], to the fax number: [phone].
--- NOTE | 2020-04-18 09:03 | NUR ---
GPS RN NOTES PATIENT RESTING IN BED AWAKE, ISOLATIVE DEPRESSED MOOD,CALM ,QUET, DENIES SI/HI AVH ,ALERT AND ORIENTED X 3. AMBULATORY, VERBALLY RESPONSIVE AND ABLE TO FOLLOW DIRECTIONS. BREATHING REGULAR AND UNLABORED ON ROOM AIR. NO COMPLAINTS OF PAIN/DISCOMFORT REPORTED AT THIS TIME. BED LOW AND LOCKED ON SEMI FOWLERS POSITION. WILL CONTINUE TO MONITOR.
[2020-04-18] MEDS: CHOLECALCIFEROL 1,000 UNIT TABLET (VIT D3) PO SCH (12:16)
[2020-04-18] MEDS: LIDOCAINE 5% (PATCH) 1 EA PATCH TP SCH (12:18)
--- NOTE | 2020-04-18 13:00 | NUR ---
INDIVIDUAL MEETING: BRISEIDA met with pt and informed her she will be discharging tomorrow Friday04/19/20 to [facility]. Pt agreed and stated she will be needed clothes and shoes. BRISEIDA stated that she will assist her with that tomorrow. Addendum: 04/18/20 at 1348 by AUSTIN GOINS Pt is less anxious and more insightful with her mental illness.
--- NOTE | 2020-04-18 13:45 | NUR ---
FAMILY CONTACT: BRISEIDA called the pts sister, Brittanie ([phone]), to inform her pt will be discharged tomorrow Friday04/19/20 to [facility].
[2020-04-18 16:00] VITALS: BP 118/59
[2020-04-18 20:55] VITALS: BP 115/56
[2020-04-18] MEDS: ARIPIPRAZOLE 2 MG TABLET PO SCH (21:03)
[2020-04-18] MEDS: FLUVOXAMINE MALEATE 50 MG TABLET PO SCH (21:03)
[2020-04-18] MEDS: ATORVASTATIN 10 MG TABLET PO SCH (21:04)
[2020-04-18] MEDS: POLYETHYLENE GLYCOL 3350 17 GM POWD.PACK PO SCH (21:05)
--- NOTE | 2020-04-18 21:05 | NUR ---
GPS RN NOTES: REFUSED MIRALAX PT REFUSED MIRALAX. EXPLAINED RISKS AND BENEFITS. PT STILL REFUSED X3. CONTINUE TO MONITOR.
[2020-04-18] MEDS: TEMAZEPAM 7.5 MG CAPSULE PO PRN (22:10)
--- NOTE | 2020-04-18 22:12 | NUR ---
GPS RN NOTES: INSOMNIA PT C/O UNABLE TO SLEEP. PT REQUESTED "SLEEPING MEDICATION". OFFERED RESTORIL PRN ORDERED. PT AGREED AND TOLERATED MEDICATION WELL. CONTINUE TO MONITOR. CONTINUE TO MONITOR.
[2020-04-19] MEDS: LEVOTHYROXINE SODIUM 25 MCG TABLET PO SCH (07:30)
[2020-04-19 08:00] VITALS: BP 128/52
[2020-04-19] MEDS: GABAPENTIN 100 MG CAPSULE PO SCH ×2 (08:39→13:59)
--- NOTE | 2020-04-19 09:47 | NUR ---
DISCHARGE NOTE: Pt will be discharged at 2:00pm via [facility] Address: [address] [place] [address] . Pts sister, Brittanie ([phone]) has been notified and agrees with discharge plan. Pts mood is anxious with congruent affect. Pt denied visual/auditory hallucinations and denied suicidal/homicidal ideation. Pt will be under the care of Psychiatrist: Dr. Petra Saleem [address], [place] [address] [phone] and [facility] Program Coordinator: Dr Bush Address: [address], [place] [address] [phone]. The multidisciplinary exit care form was done, printed, signed, and given to the patient.
[2020-04-19] MEDS: LORAZEPAM 0.5 MG TABLET PO PRN (11:56)
--- NOTE | 2020-04-19 11:57 | NUR ---
RN NOTE:PATIENT C/O ANXIETY MEDICATED WITH ATIVAN 1 MG PO FOR ANXIETY.WILL CONTINUE TO MONITOR .
--- NOTE | 2020-04-19 13:10 | NUR ---
SNF Contact: BRISEIDA faxed a clearance to Jillian ([phone]), intake coordinator from [facility], to the fax number: [phone].
[2020-04-19] MEDS: LIDOCAINE 5% (PATCH) 1 EA PATCH TP SCH (13:59)
--- NOTE | 2020-04-19 14:35 | NUR ---
SKIVER WELT END NOTE:PATIENT ALERT ,VERBALLY RESPONSIVE ,VS STABLE ,DENIES SUICIDAL IDEATION AND HOMICIDAL IDEATION ,DENIES AUDITORY ,VISUAL HALLUCINATION .NO C/O PAIN ,ALL BELONGINGS RETURNED TO PATIENT, , AND CALLED BACK WITH DISCHARGE ORDERS,REPORT GIVEN TO DONTAE DUNN IN [facility].PATIENT DISCHARGE WITH AMBULANCE AT 14:35
== END 2020-04-19 14:30 | DRG 885 ==
LOC: GPS 22:43
PROVIDERS: ADMIT Psychiatry & Neurology Psychiatry; ATTEND Nurse Practitioner Acute Care
DX: F33.2 Major depressive disorder, recurrent severe without psychotic features (principal); N17.0 Acute kidney failure with tubular necrosis; R45.851 Suicidal ideations; F42.9 Obsessive-compulsive disorder, unspecified; E03.9 Hypothyroidism, unspecified; G89.29 Other chronic pain; E87.5 Hyperkalemia; E86.0 Dehydration; E78.5 Hyperlipidemia, unspecified; K59.00 Constipation, unspecified; F41.1 Generalized anxiety disorder
CPT/HCPCS: 36415; 80048-TC; 80053-TC; 80061-TC; 81000-TC; 84443-TC; 85025-TC; 87081-TC; J2270